=== PATIENT | female | born 1975 | race Caucasian/White ===

== ENCOUNTER 2017-01-27 09:55 | Emergency (ER) | payer MEDICAID ==
[~2017-01-27] VITALS: Ht 162.6 cm; Wt 109.0 kg
[~2017-01-27 09:55] MED LIST: LIPITOR; NAPR-217 PO; SITA100T6 PO
[2017-01-27] MEDS ORDERED: KETOROLAC 30MG/ML VIAL IV STA (11:14)
[2017-01-27 11:46] LABS: DIFFERENTIAL COMMENT 0; EOSINOPHILS % 2.5 % (0.0-5.0); HEMATOCRIT. 35.4 % (36.0-48.0); HEMOGLOBIN. 11.7 g/dL (12.0-16.0); LYMPHOCYTES % 19.9 % (20.0-50.0); MEAN CORPUSCULAR HEMOGLOBIN 24.8 pg (28.0-32.0); MEAN CORPUSCULAR HGB CONC 32.9 g/dL (31.0-37.0); MEAN CORPUSCULAR VOLUME 75.2 fL (81.0-99.0); MEAN PLATELET VOLUME 7.2 fl (7.4-10.4); NEUTROPHILS % 70.6 % (40.0-76.0); PLATELET 263 x1000/uL (130-400); RED BLOOD CELL COUNT 4.71 mill/uL (4.2-5.4); RED CELL DISTRIBUTION WIDTH 16.5 % (11.6-14.6); WHITE BLOOD COUNT 9.6 x1000/uL (4.5-11.0)
[2017-01-27 11:52] LABS: CHLORIDE 101 mEq/L (98-107); INDEX HEMOLYSI 1 (1-3); INDEX ICTERIC 1 (1-4); INDEX LIPEMIC 1 (1-3)
[2017-01-27 11:56] LABS: GLUCOSE URINE 2+ (NEGATIVE); KETONES URINE NEGATIVE (NEGATIVE); LEUKOCYTE ESTERASE URINE 2+ (NEGATIVE); NITRITE URINE POSITIVE (NEGATIVE); OCCULT BLOOD URINE NEGATIVE (NEGATIVE); PROTEIN URINE 2+ (NEGATIVE); SPECIFIC GRAVITY URINE 1.026 (1.005-1.030); UROBILINOGEN URINE 0.2 E.U./dL (0.2-1.0)
[2017-01-27 11:59] LABS: CLARITY URINE CLOUDY (CLEAR); COLOR URINE YELLOW (YELLOW)
[2017-01-27 12:00] LABS: ALANINE AMINOTRANSFERASE 22 IU/L (13-61); ALBUMIN 2.9 g/dL (3.4-5.0); ANION GAP 13; CALCIUM 8.8 mg/dL (8.5-10.1); CARBON DIOXIDE 27 mEq/L (21-32); LIPASE 171 IU/L (73-393); UREA NITROGEN BLOOD 12 mg/dL (7-21); eGFR > 60 mL/min (>60)
[2017-01-27 12:01] LABS: HCG SCREEN NEGATIVE
[2017-01-27 12:19] LABS: WBC URINE 50-100 /hpf (0-2)
[2017-01-27 12:20] LABS: BACTERIA URINE 4+; RBC URINE NONE SEEN /hpf (0-2); SQUAMOUS EPITHELIAL CELL URINE 3+ /lpf (RARE/1+)
[2017-01-27] MEDS ORDERED: SODIUM CHLORIDE 0.9% 1,000 ML IV ONE (12:24)
[2017-01-27 13:12] VITALS: BP 125/67
== END 2017-01-27 13:39 | disposition home or self-care (01) ==
LOC: ER 11:10
DX: N39.0 Urinary tract infection, site not specified (principal); E78.00 Pure hypercholesterolemia, unspecified; R51 Headache; Z88.8 Allergy status to other drugs, medicaments and biological substances; Z79.899 Other long term (current) drug therapy; E11.9 Type 2 diabetes mellitus without complications; I10 Essential (primary) hypertension; R16.0 Hepatomegaly, not elsewhere classified; E11.65 Type 2 diabetes mellitus with hyperglycemia; K42.9 Umbilical hernia without obstruction or gangrene
CPT/HCPCS: 36415; 76700; 80053; 81001; 83690; 84703; 85025; 96361; 96374; 99285; J1885; J7030; Z7610